=== PATIENT | male | born 1995 | race Caucasian/White ===

== ENCOUNTER 2019-01-29 05:52 | Day surgery (SDC) | payer OTHER ==
[~2019-01-29] VITALS: Ht 177.8 cm; Wt 89.8 kg
[2019-01-29] MEDS ORDERED: LIDOCAINE 2% PF 5 ML VIAL. ONE (06:19)
[2019-01-29] MEDS ORDERED: ROCURONIUM 50 MG/5 ML VIAL. ONE (06:19)
[2019-01-29] MEDS ORDERED: PROPOFOL 20 ML IV ONE ×2 (06:19→10:08)
[2019-01-29] MEDS ORDERED: ONDANSETRON PF 4 MG/2 ML VIAL. ONE (06:19)
[2019-01-29] MEDS ORDERED: DEXAMETHASONE SOD PHOS 20 MG/5 ML VIAL. ONE ×2 (06:19→07:07)
[2019-01-29] MEDS ORDERED: ONDANSETRON PF 4 MG/2 ML VIAL. IV PRN (07:00)
[2019-01-29] MEDS ORDERED: fentaNYL PF VIAL 100 MCG/2 ML VIAL IV PRN ×2 (07:00)
[2019-01-29] MEDS ORDERED: MORPHINE SULFATE 2 MG/ML VIAL. IV PRN (07:00)
[2019-01-29] MEDS ORDERED: IV RINGERS,LACTATED 1000ML 1,000 ML IV SCH (07:00)
[2019-01-29] MEDS ORDERED: PROCHLORPERAZINE 10 MG/2 ML VIAL. IV PRN (07:00)
[2019-01-29] MEDS ORDERED: HYDROmorphone 2 MG/ML VIAL IV PRN (07:00)
[2019-01-29] MEDS ORDERED: LIDOCAINE 1% PF 2 ML VIAL. ID PRN (07:00)
[2019-01-29] MEDS ORDERED: ROPIVacaine 0.5% PF 20 ML VIAL. ONE (07:04)
[2019-01-29] MEDS ORDERED: fentaNYL PF VIAL 100 MCG/2 ML VIAL ONE (07:08)
[2019-01-29] MEDS ORDERED: MIDAZOLAM HCL/PF 2 MG/2 ML VIAL. ONE (07:09)
[2019-01-29] MEDS ORDERED: EPINEPHrine VIAL 30 MG/30 ML VIAL ONE (07:23)
[2019-01-29] MEDS ORDERED: GLYCOPYRROLATE 1 MG/5 ML VIAL. ONE (07:54)
[2019-01-29] MEDS ORDERED: NEOSTIGMINE 10 MG/10 ML VIAL. ONE (08:07)
[2019-01-29] MEDS ORDERED: SEVOFLURANE 61 TO 120 MINUTES. IH ONE (08:07)
[2019-01-29] MEDS ORDERED: diphenhydrAMINE 50 MG/ML VIAL ONE (08:22)
[2019-01-29] MEDS ORDERED: FAMOTIDINE 20 MG/2 ML VIAL ONE (08:22)
[2019-01-29] MEDS ORDERED: oxyCODONE/APAP 7.5/325 1 TAB TABLET PO ONE (09:45)
--- NOTE | 2019-01-29 10:03 | DISCH ---
DISCHARGE INSTRUCTIONS Condition on Discharge Condition on Discharge: Stable Activity After Discharge Activity Instructions for Disc: Other, see below (until pendulum range of motion with elbow at side and fine motor use only no lifting pushing or pulling) Weight Bearing Status after Di: Non weight bearing Diet after Discharge Diet after Discharge: Regular Wound Incision Care Wound/Incision Care: Change dressing (remove dressing in 2 days may then shower no soaking until sutures removed) Community/Resources/Services Services at Discharge: PT EVALUATE & TREAT (physical therapy not to start until about 6 weeks postoperatively) Contacting the DRMiranda after DC Call your doctor for: Concerns you may have Follow-Up Follow up with: Bear 2 weeks ALEXANDRIA VALADEZ MD Jan 29, 2019 10:03
[2019-01-29] MEDS ORDERED: OXYC1TAB19 PO (10:05)
--- NOTE | 2019-01-29 10:19 | PDOC4 ---
Operative Note Operative Note Date of surgery: 01/29/2019 Preoperative diagnosis: Superior labral tear left shoulder with pain and clicking, history of previous Bankart repair Postoperative diagnosis: Same with superior labral tear and nonhealing/ recurrence of Bankart repair Operative procedure: Left shoulder arthroscopy Bankart repair and SLAP repair Surgeon: Bear Assist: Jayden Peck Anesthesia: Gen. plus scalene block Estimated blood loss: 5 mL Complications: None Operative indications: Ritchie is a 23-year-old male that had had a previous left shoulder surgery elsewhere and continues to have pain and clicking weakness. MRI had shown a SLAP tear that certainly could be sponsored Shanks for his symptoms. I had also gone over with him examination under anesthesia and arthroscopic evaluation to see if there is any other pathology that needs to be addressed as well. We had talked about risks benefits postoperative course of SLAP repair intra-articular possibility of nonhealing stiffness nerve or blood vessel damage infection medical or other anesthetic consultations among others and the need to address any other pathology noted. All his questions were answered he wishes to proceed with surgical evaluation and treatment. Operative text: She was identified procedure verified patient placed in the supine position on the operating table. After adequate amounts of general anesthesia plus a pre-existing scalene block were obtained he was placed in the decubitus position left side up all bony prominences were well-padded. He was then examined under anesthesia and found to elicit some mild anterior subluxation with a significant click with load and shift. The left shoulder was then prepped and draped in standard sterile fashion placed in the arthroscopic arm barrios with a total of 10 pounds of traction after timeout was performed patient procedure identified and verified a standard posterior portal established an anterior portal established using spinal needle localization and the shoulder joint was systematically examined. He was indeed noted to have a type II SLAP tear with good preservation of the biceps tendon no subluxation rotator cuff insertion was intact throughout he did have evidence of a previous Bankart repair however it appeared that the sutures were placed somewhat superiorly on the glenoid the superior 1 repairing essentially a sub-labral foramen and both sutures were pulled away and the inferior suture seemed to be causing significant irritation on extremes of abduction external rotation in the bare area of the humerus or adjacent to it. I therefore elected to proceed with both a SLAP and a Bankart repair. Arthroscopic shaver was used unidirectional he to debride the labral tissue and a posterior lateral corner portal was established through the rotator cuff musculature to obtain orientation to place the posterior SLAP repair anchor. The superior and anterior inferior labrum was debrided back to bleeding bony tissue with good separation of the labrum and capsular structures which will adequately mobilized. Bankart repair was then carried out first with drilling a [place] Quattro link knotless anchor 2.9 mm slightly on the face of the glenoid at the 5:00 and 3:30 positions respectively. The labrum and capsule were advanced to re-created and excellent bumper of tissue and eliminate any capsular laxity. 2 identical anchors were drilled and placed at the posterior and anterior roots of the biceps anchor respectively and again excellent apposition of the superior labrum to the bony bleeding area completing the SLAP repair. The shoulder was then examined and found to restore stability and prevent any peelback lesion. The shoulder was drained of arthroscopic fluid portals closed with nylon suture sterile dressings were applied he was placed in a immobilizer and returned to recovery room stable condition having tolerated procedure well. He was given instructions for fine motor use with his arm at his side only immobilizer at all times at night area I'm going to see him back in about 2 weeks to implement some very gentle limited internal/ external rotation strengthening without yellow Thera-Band about the direct anterior portion with a very small arc of range of motion no real stretching or formal physical therapy stretching or strengthening for 6 weeks postoperatively ALEXANDRIA VALADEZ MD Jan 29, 2019 10:19
[2019-01-29 10:40] VITALS: BP 132/79
== END 2019-01-29 10:46 | disposition home or self-care (01) ==
LOC: SURG 05:52
PROVIDERS: ATTEND Orthopaedic Surgery
DX: S43.432A Superior glenoid labrum lesion of left shoulder, initial encounter (principal); S43.492A Other sprain of left shoulder joint, initial encounter; Z98.890 Other specified postprocedural states; Z72.89 Other problems related to lifestyle; Z88.2 Allergy status to sulfonamides; Z88.8 Allergy status to other drugs, medicaments and biological substances; X58.XXXA Exposure to other specified factors, initial encounter; Y93.89 Activity, other specified; Y92.89 Other specified places as the place of occurrence of the external cause; Y99.8 Other external cause status
CPT/HCPCS: 29806; A7015; J0171; J0690; J1100; J1200; J2001; J2250; J2405; J2704; J2710; J2795; J3010; J3490; C1769